=== PATIENT | female | born 1990 | race African-American/Black ===

== ENCOUNTER 2023-12-26 21:13 | Emergency (ER) | payer SELFPAY ==
[~2023-12-26] VITALS: Ht 180.3 cm; Wt 104.6 kg
[2023-12-26 21:18] VITALS: O2SAT 100
[2023-12-26] MEDS: HYDROCODONE/ACETAMINOPHEN 5/325MG TABLET PO ONE (22:15)
[2023-12-26] MEDS ORDERED: CLIN-194 MT (22:17)
[2023-12-26] MEDS ORDERED: HYDR-4001 MT ×2 (22:17→22:26)
[2023-12-26] MEDS ORDERED: IBUP-2029 MT (22:38)
[2023-12-26 23:18] VITALS: BP 134/80; PULSE 80; RESP 16; TEMP 98
== END 2023-12-26 23:25 | disposition home or self-care (01) ==
LOC: ER 21:13
DX: K02.9 Dental caries, unspecified (principal); K12.2 Cellulitis and abscess of mouth; J36 Peritonsillar abscess; I49.9 Cardiac arrhythmia, unspecified
CPT/HCPCS: 99283

== ENCOUNTER 2024-02-13 01:21 | Emergency (ER) | payer MEDICAID ==
[~2024-02-13] VITALS: Ht 180.3 cm; Wt 127.0 kg
[~2024-02-13 01:21] MED LIST: CLIN-194 MT; IBUP-2029 MT
[2024-02-13 01:36] VITALS: O2SAT 98
[2024-02-13] MEDS ORDERED: IBUP-2030 MT (01:59)
[2024-02-13] MEDS ORDERED: AMOX1TAB16 MT ×2 (01:59→13:16)
[2024-02-13] MEDS: HYDROCODONE/ACETAMINOPHEN 5/325MG TABLET PO ONE (02:22)
[2024-02-13] MEDS: KETOROLAC 30MG/ML VIAL IM ONE (02:22)
[2024-02-13 02:30] VITALS: BP 140/78; PULSE 78; RESP 19; TEMP 98.3
[2024-02-13] MEDS ORDERED: ONDA4TAB11 PO (13:16)
== END 2024-02-13 02:32 | disposition home or self-care (01) ==
LOC: ER 01:21
DX: K02.9 Dental caries, unspecified (principal)
CPT/HCPCS: 99283; 81025; 96372; J1885

== ENCOUNTER 2024-02-13 09:53 | Emergency (ER) | payer MEDICAID ==
[~2024-02-13] VITALS: Ht 167.6 cm; Wt 100.0 kg
[~2024-02-13 09:53] MED LIST changes: +AMOX1TAB16 MT; +IBUP-2030 MT
[2024-02-13 09:54] VITALS: BP 140/90; PULSE 80; RESP 18; TEMP 97.5; O2SAT 97
[2024-02-13 10:36] LABS: BASOPHILS % 0.7 % (0.0-2.0); EOSINOPHILS % 0.3 % (0.0-5.0); HEMATOCRIT. 33.5 % (36.0-48.0); HEMOGLOBIN. 10.8 g/dL (12.0-16.0); LYMPHOCYTES % 11.6 % (20.0-50.0); MEAN CORPUSCULAR HEMOGLOBIN 26.3 pg (28.0-32.0); MEAN CORPUSCULAR HGB CONC 32.2 g/dL (31.0-37.0); MEAN CORPUSCULAR VOLUME 81.9 fL (81.0-99.0); MONOCYTES % 8.4 % (2.0-8.0); PLATELET 396 x1000/uL (130-400); RED BLOOD CELL COUNT 4.09 mill/uL (4.2-5.4); RED CELL DISTRIBUTION WIDTH 16.3 % (11.6-14.6); WHITE BLOOD COUNT 9.3 x1000/uL (4.5-11.0)
[2024-02-13 10:41] LABS: CHLORIDE 106 mEq/L (98-107); POTASSIUM 3.2 mEq/L (3.5-5.1); SODIUM 140 mEq/L (136-145)
[2024-02-13 10:42] LABS: CARBON DIOXIDE 26 mEq/L (21-32)
[2024-02-13 10:43] LABS: CALCIUM 9.2 mg/dL (8.7-10.4)
[2024-02-13 10:47] LABS: CREATININE 0.9 mg/dL (0.6-1.0); GLUCOSE 79 mg/dL (70-105)
[2024-02-13 10:48] LABS: UREA NITROGEN BLOOD 7 mg/dL (9-23)
[2024-02-13 10:49] LABS: ALANINE AMINOTRANSFERASE < 7 IU/L (10-49); ALBUMIN 4.2 g/dL (3.2-4.8); ASPARTATE AMINOTRANSFERASE 13 IU/L (<34)
[2024-02-13 10:50] LABS: BILIRUBIN TOTAL 0.6 mg/dL (0.1-1.0)
[2024-02-13] MEDS: KETOROLAC 30MG/ML VIAL IV ONE (11:56)
[2024-02-13] MEDS ORDERED: DIPHENHYDRAMINE 50MG/ML VIAL IV ONE (13:15)
[2024-02-13] MEDS ORDERED: AMOX1TAB16 MT (13:16)
[2024-02-13] MEDS ORDERED: ONDA4TAB11 PO (13:16)
[2024-02-13] MEDS: POTASSIUM CHLORIDE 20MEQ/PACKET PO ONE (13:43)
[2024-02-13] MEDS: DIPHENHYDRAMINE 25MG CAPSULE PO ONE (13:43)
== END 2024-02-13 13:59 | disposition home or self-care (01) ==
LOC: ER 10:06
DX: K04.7 Periapical abscess without sinus (principal); R22.0 Localized swelling, mass and lump, head; R11.10 Vomiting, unspecified; E87.6 Hypokalemia
CPT/HCPCS: 80053; 81025; 83690; 85025; 36415; 70491; 96374; 99285; Q0163; J1885; Z7610

== ENCOUNTER 2025-03-17 14:19 | Emergency (ER) | payer MEDICAID ==
[~2025-03-17] VITALS: Ht 167.6 cm; Wt 90.0 kg
[~2025-03-17 14:19] MED LIST changes: +ONDA-239 PO
[2025-03-17 14:39] VITALS: O2SAT 99
[2025-03-17] MEDS ORDERED: LORAZEPAM 1MG TABLET PO ONE (16:00)
[2025-03-17 16:41] LABS: BASOPHILS % 0.4 % (0.0-2.0); EOSINOPHILS % 0.3 % (0.0-5.0); HEMATOCRIT. 38.3 % (36.0-48.0); HEMOGLOBIN. 12.4 g/dL (12.0-16.0); LYMPHOCYTES % 22.3 % (20.0-50.0); MEAN PLATELET VOLUME 8.0 fl (7.4-10.4); MONOCYTES % 13.7 % (2.0-8.0); NEUTROPHILS % 63.3 % (40.0-76.0); PLATELET 323 x1000/uL (130-400); RED BLOOD CELL COUNT 4.67 mill/uL (4.2-5.4); RED CELL DISTRIBUTION WIDTH 16.0 % (11.6-14.6)
[2025-03-17 16:50] LABS: INR 1.0
[2025-03-17 16:53] LABS: CREATININE 0.8 mg/dL (0.6-1.0)
[2025-03-17 16:54] LABS: ETHANOL BLOOD < 10 mg/dL (<10); UREA NITROGEN BLOOD 10 mg/dL (9-23)
[2025-03-17 16:55] LABS: ASPARTATE AMINOTRANSFERASE 16 IU/L (<34)
[2025-03-17 16:56] LABS: BILIRUBIN DIRECT 0.1 mg/dL (<=3.0); BILIRUBIN TOTAL 0.6 mg/dL (0.1-1.0); PROTEIN TOTAL 7.2 g/dL (6.0-8.3)
[2025-03-17 18:48] LABS: *AMPHETAMINES SCREEN URINE NEGATIVE (NEGATIVE); *BARBITURATES SCREEN URINE NEGATIVE (NEGATIVE); *BENZODIAZEPINES SCREEN URINE NEGATIVE (NEGATIVE); *COCAINE SCREEN URINE NEGATIVE (NEGATIVE); CANNABINOID URINE SCREEN PRESUMPTIVE POSITIVE (NEGATIVE); ECSTASY MDMA SCREEN URINE NEGATIVE (NEGATIVE); METHADONE URINE SCREEN NEGATIVE (NEGATIVE); OPIATES URINE SCREEN NEGATIVE (NEGATIVE); PHENCYCLIDINE URINE SCREEN NEGATIVE (NEGATIVE)
[2025-03-17 19:38] LABS: CLARITY URINE CLEAR (CLEAR); COLOR URINE YELLOW (YELLOW); GLUCOSE URINE NEGATIVE (NEGATIVE); KETONES URINE 1+ (NEGATIVE); LEUKOCYTE ESTERASE URINE 2+ (NEGATIVE); NITRITE URINE NEGATIVE (NEGATIVE); OCCULT BLOOD URINE 2+ (NEGATIVE); PH URINE 7.0 (4.5-8.0); PROTEIN URINE TRACE (NEGATIVE); SPECIFIC GRAVITY URINE 1.021 (1.005-1.030); UROBILINOGEN URINE 0.2 E.U./dL (0.2-1.0)
[2025-03-17 19:57] LABS: BACTERIA URINE 2+; SQUAMOUS EPITHELIAL CELL URINE 2+ /lpf (RARE/1+)
[2025-03-17 21:40] LABS: HCG SCREEN NEGATIVE
[2025-03-17 23:47] VITALS: TEMP 36.7
[2025-03-18] MEDS: LORAZEPAM 1MG TABLET PO SCH (01:28)
[2025-03-18 12:41] VITALS: BP 144/88; PULSE 88; RESP 18; O2SAT 100
== END 2025-03-18 12:53 | disposition home or self-care (01) ==
LOC: ER 14:19
DX: R45.851 Suicidal ideations (principal); F41.9 Anxiety disorder, unspecified; Z79.899 Other long term (current) drug therapy; Z86.73 Personal history of transient ischemic attack (TIA), and cerebral infarction without residual deficits; Z20.822 Contact with and (suspected) exposure to COVID-19
CPT/HCPCS: 80076; 80305; 80048; 81003; 80307; 80329; 80320; 84703; 83690; 85025; 85610; 36415; 99285; 87426; Z7610 ×2; A4606; G0480